=== PATIENT | male | born 1945 | race Caucasian/White ===

== ENCOUNTER 2018-11-02 21:59 | Inpatient (IN) | payer OTHER | END 2018-11-08 15:55 | LOC: EDH 21:59 → EDHIP 11-03 00:44 → 3DH 11-03 17:47 | DX: N39.0 Urinary tract infection, site not specified (principal); I13.0 Hypertensive heart and chronic kidney disease with heart failure and stage 1 through stage 4 chronic kidney disease, or unspecified chronic kidney disease; I50.9 Heart failure, unspecified; R63.4 Abnormal weight loss; R13.10 Dysphagia, unspecified; W06.XXXA Fall from bed, initial encounter ==

== ENCOUNTER 2018-11-24 13:11 | Emergency (ER) | payer OTHER ==
[~2018-11-24 13:11] MED LIST: AEC81 PO; AMIO100T4 PO; FURO20TA4 PO; LINA5TAB PO; METO-408 PO; PANT40TA25 PO; RANO500T2 PO
[2018-11-24 14:47] LABS: BASOPHILS % (AUTO) 0.5 % (0.0-5.0); EOSINOPHILS % (AUTO) 2.1 % (0.0-8.0); HEMATOCRIT 33.6 % (42-54); LYMPHOCYTES % (AUTO) 14.1 % (21.0-51.0); MEAN CORPUSCULAR HGB CONC 32.9 g/dL (32.0-36.0); MEAN CORPUSCULAR VOLUME 84.9 fL (79-99); MONOCYTES % (AUTO) 11.7 % (3.0-13.0); NEUTROPHILS % (AUTO) 71.6 % (40.0-77.0); PLATELET COUNT (AUTO) 213 K/uL (130-400); RED BLOOD CELL COUNT(AUTO) 3.96 MIL/uL (4.50-6.20); RED CELL DISTRIBUTION WIDTH 19.2 % (11.0-15.5); WHITE BLOOD COUNT (AUTO) 6.2 K/uL (4.8-10.8)
[2018-11-24 15:03] LABS: INR 1.06 (0.85-1.15); PARTIAL THROMBOPLASTIN TIME 32.5 SEC (26.3-35.5); PROTHROMBIN TIME 11.1 SEC (9.6-11.6)
[2018-11-24 15:07] LABS: CREATININE 2.2 mg/dL (0.5-1.5); POTASSIUM 4.2 mmol/L (3.5-5.1)
[2018-11-24 15:14] LABS: ALBUMIN 2.6 g/dL (3.5-5.0); BILIRUBIN,TOTAL 0.8 mg/dL (0.2-1.0); TOTAL PROTEIN, SERUM 6.6 g/dL (6.0-8.3)
== END 2018-11-24 15:41 | disposition home or self-care (01) ==
LOC: EDH 13:11
DX: S51.811A Laceration without foreign body of right forearm, initial encounter (principal); S00.01XA Abrasion of scalp, initial encounter; N28.9 Disorder of kidney and ureter, unspecified; I48.91 Unspecified atrial fibrillation; I25.810 Atherosclerosis of coronary artery bypass graft(s) without angina pectoris; I50.9 Heart failure, unspecified; Z88.8 Allergy status to other drugs, medicaments and biological substances; Z95.1 Presence of aortocoronary bypass graft; W07.XXXA Fall from chair, initial encounter; Y93.89 Activity, other specified; Y92.89 Other specified places as the place of occurrence of the external cause; Y99.8 Other external cause status
CPT/HCPCS: 36415; 70450; 72125; 73502; 80053; 82550; 84484; 85025; 85610; 85730; 93005

== ENCOUNTER 2018-11-25 09:45 | Emergency (ER) | payer OTHER ==
[2018-11-25 10:45] LABS: BASOPHILS % (AUTO) 0.5 % (0.0-5.0); EOSINOPHILS % (AUTO) 1.2 % (0.0-8.0); HEMATOCRIT 32.3 % (42-54); LYMPHOCYTES % (AUTO) 12.2 % (21.0-51.0); MEAN CORPUSCULAR HEMOGLOBIN 28.5 pg (27.0-33.0); MEAN CORPUSCULAR HGB CONC 33.8 g/dL (32.0-36.0); MEAN CORPUSCULAR VOLUME 84.5 fL (79-99); MONOCYTES % (AUTO) 10.8 % (3.0-13.0); NEUTROPHILS % (AUTO) 75.3 % (40.0-77.0); NUCLEATED RED BLOOD CELLS 0.1 % (0.0-0.19); PLATELET COUNT (AUTO) 246 K/uL (130-400); RED BLOOD CELL COUNT(AUTO) 3.83 MIL/uL (4.50-6.20); WHITE BLOOD COUNT (AUTO) 8.4 K/uL (4.8-10.8)
[2018-11-25 11:09] LABS: APPEARANCE,URINE CLOUDY (CLEAR); BILIRUBIN,URINE NEGATIVE (NEGATIVE); COLOR,URINE YELLOW (YELLOW); GLUCOSE, URINE (UA) NEGATIVE (NEGATIVE); KETONES,URINE 5 mg/dL (NEGATIVE); LEUKOCYTE ESTERASE ,URINE MODERATE (NEGATIVE); NITRATE,URINE NEGATIVE (NEGATIVE); OCCULT BLOOD,URINE NEGATIVE (NEGATIVE); PROTEIN,URINE TRACE (NEGATIVE); UROBILINOGEN,URINE 0.2 mg/dL (0.2-1.0)
[2018-11-25 11:14] LABS: BACTERIA,URINE Rare /HPF (None Seen); RBC,URINE 0-1 /HPF (0-1); SQUAMOUS EPITHELIAL CELL,UR Moderate /HPF (0-2)
== END 2018-11-25 14:30 | disposition home or self-care (01) ==
LOC: EDH 09:45
DX: S51.811A Laceration without foreign body of right forearm, initial encounter (principal); S00.01XA Abrasion of scalp, initial encounter; E11.9 Type 2 diabetes mellitus without complications; I25.810 Atherosclerosis of coronary artery bypass graft(s) without angina pectoris; Z95.1 Presence of aortocoronary bypass graft; Z88.8 Allergy status to other drugs, medicaments and biological substances; W18.39XA Other fall on same level, initial encounter; Y93.89 Activity, other specified; Y92.89 Other specified places as the place of occurrence of the external cause; Y99.8 Other external cause status
CPT/HCPCS: 36415; 70450; 72125; 81001; 82550; 84484; 85025; 93005

== ENCOUNTER 2018-12-02 14:31 | Inpatient (IN) | payer OTHER ==
[~2018-12-02] VITALS: Ht 167.6 cm; Wt 67.4 kg
[2018-12-02 15:36] LABS: BASOPHILS % (AUTO) 0.8 % (0.0-5.0); EOSINOPHILS % (AUTO) 0.6 % (0.0-8.0); HEMATOCRIT 30.7 % (42-54); MEAN CORPUSCULAR HGB CONC 33.4 g/dL (32.0-36.0); MEAN CORPUSCULAR VOLUME 86.8 fL (79-99); MONOCYTES % (AUTO) 11.5 % (3.0-13.0); NEUTROPHILS % (AUTO) 77.1 % (40.0-77.0); PLATELET COUNT (AUTO) 248 K/uL (130-400); RED BLOOD CELL COUNT(AUTO) 3.54 MIL/uL (4.50-6.20); RED CELL DISTRIBUTION WIDTH 19.9 % (11.0-15.5); WHITE BLOOD COUNT (AUTO) 10.6 K/uL (4.8-10.8)
[2018-12-02] MEDS ORDERED: IPRATROPIUM/ALBUTEROL SULFATE 3 ML SOLUTION IH ONE (15:43)
[2018-12-02 15:45] LABS: CREATININE 1.8 mg/dL (0.5-1.5); POTASSIUM 4.3 mmol/L (3.5-5.1)
[2018-12-02 16:28] LABS: B-TYPE NATRIURETIC PEPTIDE 2480 pg/mL (0-100)
[2018-12-02] MEDS ORDERED: FUROSEMIDE 10 MG/ML 4ML VIAL ONE (17:13)
[2018-12-02] MEDS ORDERED: ASPIRIN 325 MG TABLET ONE (17:23)
[2018-12-02] MEDS ORDERED: NITROGLYCERIN 0.4 MG SL TAB SL PRN (18:30)
[2018-12-02] MEDS ORDERED: ACETAMINOPHEN 325 MG TAB PO PRN (18:30)
[2018-12-02] MEDS ORDERED: ENOXAPARIN SODIUM 80 MG/0.8 ML SQ SCH (18:30)
[2018-12-02] MEDS ORDERED: FUROSEMIDE 10 MG/ML 2ML VIAL IVP SCH (18:30)
[2018-12-02] MEDS ORDERED: MORPHINE SULFATE 4 MG/1ML SYG IVP PRN (18:30)
[2018-12-02] MEDS ORDERED: IPRATROPIUM/ALBUTEROL SULFATE 3 ML SOLUTION IH PRN (18:30)
[2018-12-02] MEDS ORDERED: ENOXAPARIN SODIUM 60 MG/0.6 ML SQ ONE (21:26)
[2018-12-02 22:30] VITALS: BP 96/60
--- NOTE | 2018-12-02 22:30 | NUR ---
RECEIVED FROM ER BY LEIGHTON. MOVED TO ICU BED 209. PLACED ON MANAGER RELOCATION, NIBP, PULSE OXIMETER. O2 PLACED AT 2LNC. DENIES PAIN OR SOB. CALL LIGHT EXPLAINED AND GIVEN TO HIM. ADMISSION COMPLETED. ENCOURAGED TO CALL FOR WANTS OR NEEDS. REMINDED OF NPO STATUS AFTER MC. HAS NUMEROUS OLD HEALING SKIN TEARS/ABRASIONS FROM PREVIOUS FALLS AT HOME . DOCUMENTED WITH PICTURES AND PLACED ON CHART. CASE MANAGEMENT CONSULT PLACED.
[2018-12-02 23:24] VITALS: BP 80/53
[2018-12-03] VITALS (8 sets, daily range): BP systolic 87–111; BP diastolic 42–65
--- NOTE | 2018-12-03 08:29 | NUR ---
NO ACUTE DISTRESS NOTED- PT RESTING. DR SO HAS ROUNDED ON PATIENT -EXAMINED AND RECORDS REVIEWED. WILL HAVE ABDOMINAL ULTRASOUND /ECHO, CAROTID US TODAY. NPO UNTIL EXAMS COMPLETED. PT INFORMED OF PLAN OF CARE
[2018-12-03] MEDS ORDERED: PANTOPRAZOLE 40 MG/VIAL IVP SCH (09:00)
[2018-12-03] MEDS ORDERED: ENOXAPARIN SODIUM 60 MG/0.6 ML SQ SCH (09:00)
[2018-12-03] MEDS: LINAGLIPTIN 5 MG TABLET PO SCH (10:12)
[2018-12-03] MEDS: METOPROLOL TARTRATE 25 MG TAB PO SCH ×2 (10:15→20:48)
[2018-12-03] MEDS: AMIODARONE HCL 200 MG TABLET PO SCH (10:15)
[2018-12-03] MEDS: FAMOTIDINE/PF 20 MG/2 ML VIAL IV SCH (10:16)
--- NOTE | 2018-12-03 10:32 | NUR ---
PT EXPRESSED DNR TO DR PEARCE AND STAFF- PT HAS SIGNED DNR FORM- PT TELLS ME HE DOES NOT WANT ANY VISITORS OR CARB[employer] INSERTER SERVICES. HE LIVES ALONE AND I HAVE LET HIM KNOW THAT I WILL HAVE PAPER PRODUCTS PRINTER AND BOTTOMING MACHINE OPERATOR SEE HIM F0R POSSIBLE ASSISTANCE AT HOME. HE EXPLAINED TO ME THAT HE HAS A BROTHER IN LAW NAMED EDUARDO WHO HAS M.P.O.A. . I WILL CALL HIM AND LET HIM KNOW HE IS ADMITTED
--- NOTE | 2018-12-03 10:59 | NUR ---
PHONE NUMBER OF CONTACT IS NOT IN SERVICE
[2018-12-03] MEDS: FUROSEMIDE 10 MG/ML 4ML VIAL IV SCH (12:28)
--- NOTE | 2018-12-03 14:18 | NUR ---
OPERA SINGER NALINI MEDINA SPEAKING TO PATIENT- ALMA DELIA WITH CASE MANAGEMENT ALSO MADE AWARE OF NEEDS
--- NOTE | 2018-12-03 14:35 | NUR ---
HOME SITUATION Sw met with pt who states he is [facility], is , had 2 children. Son of liver cancer and daughter Jacinto is in [place]. Pt states daughter is 42 and suffers from Epilepsy, he does not want to add to her issues. Pt has brother in law Altaf Betancur [phone] that has MPOA. Brother in law in [place] and has his own medical issues as well. Pt states he has an apartment here and HH sees him for wound care and PT. Dr Lisa Oliver set up and would have information on agency. Pt states he does not want to go a NH related to his money. Pt does not want to use up his savings. Pt states he would rather go to shelter that back to [facility], liked [facility] better. Pt has made himself DNR and DNI, and wants brother in law notified if anything happens to pt.
--- NOTE | 2018-12-03 18:48 | NUR ---
NE PLAN MILK DRIVER VISITED WITH PATIENT. PATIENT LIVES ALONE. [facility] HAS SET UP HOME HEALTH FOR WOUND CARE AND FOR PHYSICAL THERAPY. PATIENT HAS BEEN TO SEVERAL FACILITIES BUT DOES NOT WANT TO BE PLACED. PATIENT SAYS HE HAS MONEY AND DOES NOT WANT TO LOOSE IT. SPOKE TO NURSE. EXPLAINED THAT DR. ORTIZ DOES HOSPICE NOT PALLATIVE. [facility]IMARY OR [facility] CAN DO PALLATIVE. PATIENT SIGNED DNR. MYCHAL FROM [facility] CALLED SAID THAT SHE HAD BEEN SPEAKING TO PATIENT AND THEY WERE COMMING UP WITH A PLAN. ASKED NURSE ABOUT CONCERNS. ASKED IF [facility] SHOULD BE CALLED. SAID NO APS NOT NEEDED. Addendum: 12/03/18 at 1853 by ALMA DELIA BRUNSON RN CM Amended: Links added.
[2018-12-03] MEDS: RANOLAZINE 500 MG TAB.SR.12H PO SCH (20:48)
[2018-12-03] MEDS: FUROSEMIDE 10 MG/ML 4ML VIAL IVP SCH (20:50)
--- NOTE | 2018-12-04 01:00 | NUR ---
REPORT RECEIVED BY ZUHAIR DUGGAN. PT IN BED, NO DISTRESS NOTED. AWAKE. STATES NO PAIN OR SOB AT THIS TIME.
[2018-12-04 03:34] LABS: BASOPHILS % (AUTO) 0.8 % (0.0-5.0); EOSINOPHILS % (AUTO) 1.6 % (0.0-8.0); HEMATOCRIT 28.9 % (42-54); LYMPHOCYTES % (AUTO) 11.1 % (21.0-51.0); MEAN CORPUSCULAR HEMOGLOBIN 28.9 pg (27.0-33.0); MEAN CORPUSCULAR HGB CONC 33.1 g/dL (32.0-36.0); MEAN CORPUSCULAR VOLUME 87.4 fL (79-99); NEUTROPHILS % (AUTO) 74.5 % (40.0-77.0); PLATELET COUNT (AUTO) 247 K/uL (130-400); RED BLOOD CELL COUNT(AUTO) 3.31 MIL/uL (4.50-6.20); RED CELL DISTRIBUTION WIDTH 20.3 % (11.0-15.5); WHITE BLOOD COUNT (AUTO) 7.5 K/uL (4.8-10.8)
[2018-12-04 03:44] VITALS: BP 101/56
[2018-12-04 04:07] LABS: CREATININE 1.9 mg/dL (0.5-1.5)
[2018-12-04 04:11] LABS: TROPONIN I 11.93 ng/mL (0.00-0.06)
[2018-12-04 07:29] VITALS: BP 112/74
[2018-12-04] MEDS: FAMOTIDINE/PF 20 MG/2 ML VIAL IV SCH (09:00)
[2018-12-04] MEDS ORDERED: ENOXAPARIN SODIUM 60 MG/0.6 ML SQ SCH (09:00)
[2018-12-04] MEDS: RANOLAZINE 500 MG TAB.SR.12H PO SCH ×2 (10:25→23:06)
[2018-12-04] MEDS: PANTOPRAZOLE SODIUM 40 MG TABLET.DR PO SCH (10:26)
[2018-12-04] MEDS: AMIODARONE HCL 200 MG TABLET PO SCH (10:26)
[2018-12-04] MEDS: METOPROLOL TARTRATE 25 MG TAB PO SCH ×2 (10:26→23:06)
[2018-12-04] MEDS: ASPIRIN 81 MG EC TAB PO SCH (10:26)
[2018-12-04] MEDS: FUROSEMIDE 10 MG/ML 4ML VIAL IVP SCH ×2 (10:27→23:06)
[2018-12-04] MEDS: LINAGLIPTIN 5 MG TABLET PO SCH (10:38)
[2018-12-04 11:12] VITALS: BP 115/71
[2018-12-04] MEDS: FUROSEMIDE 10 MG/ML 4ML VIAL IV SCH (11:45)
[2018-12-04] MEDS: IPRATROPIUM/ALBUTEROL SULFATE 3 ML SOLUTION IH SCH ×2 (13:41→21:32)
[2018-12-04] MEDS ORDERED: CLOPIDOGREL BISULFATE 300 MG TAB PO SCH (14:00)
--- NOTE | 2018-12-04 14:35 | NUR ---
dcp: NH WITH HOSPICE- [facility] SHANTELL met with pt and brother in law/MPOA Altaf Betancur. Both are agreeable to hospice in a NH. Discussed options or placement in [place] for 30 days to give brother in law time to make arrangements in [place] or dc to [facility] from here. Altaf states he has spoke to [facility] [phone] fax [phone] in [place] about situation already. pt prefers to go directly to [place] if possible. Altaf wanting MD clearance to transport pt in private car. Pt will need portable O2 to travel. SHANTELL spoke to Winifred at [facility] and she is familiar with pt's name and case. Will need updated clinicals and PASRR. Winifred states they have contracts with [facility] and [facility], which they own. Pt could start with [facility] here and transfer to [place] office. SHANTELL notified pt and Altaf and they are agreeable to referral to [facility] and [facility]. - pending MD ok to travel by car. Nurse and CM informed of above and will speak to Dr Thomas. SHANTELL faxed pt info to Winifred for review.
--- NOTE | 2018-12-04 15:10 | NUR ---
Spok with Dr. Thomas. Patient should be ok to travel by private vehicle to his new prison in [place]. He said we could keep patient until Saturday to improve lung status. Dr. Thomas also wanted an abg in the AM to decide if patient was going to be discharged with O2, but i spoke with Marilu the social services and she said all patients in hospice are given O2.
--- NOTE | 2018-12-04 15:21 | NUR ---
DCP: Sanjeev informed by nurse that Dr Thomas states pt can travel by private car and should be ready for dc Sat. Sanjeev Spoke to Altaf and informed of this. Sanjeev to verify that [facility] will accept on weekend. Sanjeev spoke to Annia who is here doing eval for [facility] a sister facility. Annia informed of possible dc over weekend and will verify that [facility] will accept over weekend. Annia aware of private pay status for pt. Sanjeev spoke to Jaqueline at [facility]. [facility] office still not staffed. She will check with Adminstrator regarding referral and get back to me.
[2018-12-04 15:44] VITALS: BP 97/56
[2018-12-04] MEDS ORDERED: CEFTRIAXONE SODIUM 1 GM IV SCH (17:00)
--- NOTE | 2018-12-04 17:00 | NUR ---
Received patient from 2nd floor. Patient alert, oriented and awake. Bed placed at the lowest position, side rails up x2 and call light placed within reach. Oriented to room. Patient in stable condition, in no apparent distress, O2 placed at 2LPM via NC. IV to right arm patent. Patient given opportunity to ask questions, no questions or concerns voiced at this time.
[2018-12-04 17:05] VITALS: BP 92/55
[2018-12-04 19:12] VITALS: BP 94/61
[2018-12-04] MEDS: CEFTRIAXONE SODIUM 1 GM IV SCH (23:05)
[2018-12-05] VITALS (7 sets, daily range): BP systolic 86–97; BP diastolic 55–64
[2018-12-05] MEDS: IPRATROPIUM/ALBUTEROL SULFATE 3 ML SOLUTION IH SCH ×3 (04:52→22:00)
[2018-12-05] MEDS ORDERED: CLOP75TA14 PO (08:40)
[2018-12-05] MEDS ORDERED: LISI2.5T2 PO (08:40)
[2018-12-05] MEDS ORDERED: FURO40TA5 PO (08:41)
[2018-12-05] MEDS: FUROSEMIDE 10 MG/ML 4ML VIAL IVP SCH (09:00)
--- NOTE | 2018-12-05 09:03 | NUR ---
[facility] with [facility] Sanjeev recd call from Raiza at [facility]. [facility] contacted them for clinicals on pt. Sanjeev faxed clinicals to [facility] [phone] as requested. Raiza states they will try to get everything coordinated for admission tomorrow. Waiting for response. Sanjeev spoke to Alexandra Thompson at [facility] [phone] in [place] for possible assist with getting pt to [place] with O2. Alexandra to talk to her DON to contact [facility] office and see how they can coordinate this. Waiting for response. Pt info faxed to Alexandra as well
[2018-12-05 09:16] LABS: MAGNESIUM 1.6 mg/dL (1.80-2.40); POTASSIUM 3.4 mmol/L (3.5-5.1)
[2018-12-05] MEDS: CLOPIDOGREL BISULFATE 75 MG TAB PO SCH (10:48)
[2018-12-05] MEDS: FAMOTIDINE/PF 20 MG/2 ML VIAL IV SCH (10:48)
[2018-12-05] MEDS: AMIODARONE HCL 200 MG TABLET PO SCH (10:49)
[2018-12-05] MEDS: ASPIRIN 81 MG EC TAB PO SCH (10:49)
[2018-12-05] MEDS: LINAGLIPTIN 5 MG TABLET PO SCH (10:49)
[2018-12-05] MEDS: PANTOPRAZOLE SODIUM 40 MG TABLET.DR PO SCH (10:49)
[2018-12-05] MEDS: RANOLAZINE 500 MG TAB.SR.12H PO SCH ×2 (10:49→21:20)
[2018-12-05] MEDS: METOPROLOL TARTRATE 25 MG TAB PO SCH (10:49)
[2018-12-05] MEDS: FUROSEMIDE 10 MG/ML 4ML VIAL IV SCH (10:50)
[2018-12-05] MEDS: ENOXAPARIN SODIUM 30 MG/0.3 ML SQ SCH (10:50)
--- NOTE | 2018-12-05 13:44 | NUR ---
DCP: SAT to [facility] with [facility] Caryl from [facility] Jayshree met with pt and complete paperwork for [facility]. Caryl to fax all documents to them. Shantell recd call from [facility], JAGDISH Braxton. Irais states that Altaf Betancur there with her to make arrangements for portable O2 to be delivered to Mr Betancur and he will bring with him when he picks up pt tomorrow. Mr Betancur plans to be here around noon to bean picker pt and would like all dc paperwork ready.Shantell met with pt and completed OOHDNR and copies on chart. OOHDNR to was faxed to [phone]. PLEASE CALL REPORT to [phone] SHANTELL spoke to Ayesha at [facility]. Pt has been accepted. PLEASE CALL REPORT TO [phone] .OOHDNR faxed to [facility] and [facility]. Maximilian nurse notified of above .
[2018-12-05] MEDS: POTASSIUM CHLORIDE 20 MEQ ERTAB PO SCH (15:05)
--- NOTE | 2018-12-05 15:09 | NUR ---
PT going to [facility], Room # [address] - [address] Joy. PLEASE CALL REPORT TO [phone] - [place] [phone]
--- NOTE | 2018-12-05 17:00 | NUR ---
PLS SEE SHANTELL NOTE RE PLAN FOR DISCHARGE Addendum: 12/05/18 at 2000 by JUAN SEAMAN RN CM Amended: Links added.
[2018-12-05] MEDS ORDERED: LISINOPRIL 2.5 MG TABLET PO SCH (21:00)
[2018-12-05] MEDS: CEFTRIAXONE SODIUM 1 GM IV SCH (21:19)
[2018-12-05] MEDS: MAGNESIUM OXIDE 400 MG TABLET PO SCH (21:20)
[2018-12-06 03:56] VITALS: BP 94/61
[2018-12-06 04:53] LABS: CREATININE 1.9 mg/dL (0.5-1.5); MAGNESIUM 1.8 mg/dL (1.80-2.40)
[2018-12-06] MEDS: IPRATROPIUM/ALBUTEROL SULFATE 3 ML SOLUTION IH SCH (06:30)
[2018-12-06 08:00] VITALS: BP 98/63
[2018-12-06] MEDS: FAMOTIDINE/PF 20 MG/2 ML VIAL IV SCH (08:54)
[2018-12-06] MEDS: FUROSEMIDE 10 MG/ML 4ML VIAL IV SCH (08:54)
[2018-12-06] MEDS: METOPROLOL TARTRATE 25 MG TAB PO SCH (08:57)
[2018-12-06] MEDS ORDERED: FUROSEMIDE 40 MG TABLET PO SCH (09:00)
[2018-12-06] MEDS ORDERED: POTASSIUM CHLORIDE 20 MEQ ERTAB PO SCH (09:00)
[2018-12-06] MEDS ORDERED: POTASSIUM CHLORIDE 10% ELIXIR 20 MEQ/15 ML UDCUP PO SCH (09:00)
[2018-12-06] MEDS ORDERED: FUROSEMIDE 10 MG/1 ML SOLN UDC 10 MG/ML UDCUP PO SCH (09:00)
[2018-12-06] MEDS: ASPIRIN 81 MG EC TAB PO SCH (10:22)
[2018-12-06] MEDS: PANTOPRAZOLE SODIUM 40 MG TABLET.DR PO SCH (10:23)
[2018-12-06] MEDS: RANOLAZINE 500 MG TAB.SR.12H PO SCH (10:23)
[2018-12-06] MEDS: CLOPIDOGREL BISULFATE 75 MG TAB PO SCH (10:23)
[2018-12-06] MEDS: AMIODARONE HCL 200 MG TABLET PO SCH (10:23)
[2018-12-06] MEDS: MAGNESIUM OXIDE 400 MG TABLET PO SCH (10:23)
[2018-12-06] MEDS: LINAGLIPTIN 5 MG TABLET PO SCH (10:23)
[2018-12-06] MEDS: ENOXAPARIN SODIUM 30 MG/0.3 ML SQ SCH (10:26)
--- NOTE | 2018-12-06 11:45 | NUR ---
DR. DAVIS REQUESTED TO HAVE RN ADVICE INSPECT O2 TANKS TO ENSURE THEY ARE IN PROPER WORKING ORDER AND THAT PT KNOWS HOW TO USE THEM PRIOR TO DISCHARGE. NOTIFIED RT EDMUNDO OF NEED FOR THIS.
[2018-12-06 12:00] VITALS: BP 99/62
--- NOTE | 2018-12-06 13:15 | NUR ---
REPORT CALLED TO OLGA LIDIA HARLEY FROM [facility]. REPORT CALLED TO SONIA FROM [facility]. DISCHARGE TEACHING COMPLETED IN THE ROOM WITH PT AND BROTHER IN LAW. PIV REMOVED, TIP INTACT. DRESSED WITH STERILE 2X2 AND BAND AID AFTER HEMOSTASIS ACHIEVED. PT TO BE TRANSPORTED VIA PRIVATE VEHICLE WITH HOME O2. AWAITING FOR ARRIVAL OF RT.
[2018-12-06] MEDS: POTASSIUM CHLORIDE 20 MEQ ERTAB PO SCH (13:30)
--- NOTE | 2018-12-06 14:45 | NUR ---
O2 tank instruction completed by RT. O2 sat 100% on portable tank. Pt wheeled to front lobby by [facility] staff for transport to [facility] via private car, accompanied by brother in law. Pt in stable condition at time of discharge.
== END 2018-12-06 14:45 | disposition hospice, inpatient (51) | DRG 280 ==
LOC: EDH 14:31 → EDHIP 17:48 → 2BH 22:11 → 4CH 12-04 16:47
PROVIDERS: ADMIT Internal Medicine Critical Care Medicine; ATTEND Internal Medicine Critical Care Medicine
DX: I21.4 Non-ST elevation (NSTEMI) myocardial infarction (principal); I50.43 Acute on chronic combined systolic (congestive) and diastolic (congestive) heart failure; J69.0 Pneumonitis due to inhalation of food and vomit; I13.0 Hypertensive heart and chronic kidney disease with heart failure and stage 1 through stage 4 chronic kidney disease, or unspecified chronic kidney disease; I48.92 Unspecified atrial flutter; E11.22 Type 2 diabetes mellitus with diabetic chronic kidney disease; I95.9 Hypotension, unspecified; Z66 Do not resuscitate; I48.0 Paroxysmal atrial fibrillation; I35.0 Nonrheumatic aortic (valve) stenosis; I25.10 Atherosclerotic heart disease of native coronary artery without angina pectoris; N18.3 Chronic kidney disease, stage 3 (moderate); D64.9 Anemia, unspecified; E78.5 Hyperlipidemia, unspecified; I95.1 Orthostatic hypotension; Z51.5 Encounter for palliative care; I25.5 Ischemic cardiomyopathy; I70.0 Atherosclerosis of aorta; R29.6 Repeated falls; Z74.01 Bed confinement status; Z87.440 Personal history of urinary (tract) infections; Z95.1 Presence of aortocoronary bypass graft; Z79.01 Long term (current) use of anticoagulants; Z79.02 Long term (current) use of antithrombotics/antiplatelets; Z79.82 Long term (current) use of aspirin; Z79.899 Other long term (current) drug therapy
CPT/HCPCS: 36415; 71045; 76700; 80048; 80339; 82550; 83735; 83874; 83880; 84484; 85025; 87804; 93005; 93306; 93880; 94640; 94664; A4218; C9113; G0378; J0696; J1650; J1940; J3490